=== PATIENT | male | born 1965 | race Caucasian/White ===

== ENCOUNTER 2023-02-26 11:08 | Emergency (ER) | payer OTHER | END 2023-02-26 12:57 | disposition home or self-care (01) | LOC: ERS 11:08 | DX: T63.2X1A Toxic effect of venom of scorpion, accidental (unintentional), initial encounter (principal); L03.113 Cellulitis of right upper limb; L03.115 Cellulitis of right lower limb; F17.210 Nicotine dependence, cigarettes, uncomplicated | CPT/HCPCS: 99283 ==